=== PATIENT | male | born 1995 | race Caucasian/White ===

== ENCOUNTER 2016-05-18 06:55 | Emergency (ER) | payer SELFPAY ==
[~2016-05-18] VITALS: Ht 195.6 cm; Wt 135.0 kg
[~2016-05-18 06:55] MED LIST: NAPROSYN500 MG PO; NO HOME MEDS; PERCOCET 5/325M1 TAB OR; SULFACET SOD10 % OU; ULTRAM50 M1 PO
[2016-05-18 07:50] LABS: INFLUENZA A NONE DETECTED (NONE DETECT); INFLUENZA B NONE DETECTED (NONE DETECT)
[2016-05-18] MEDS ORDERED: MOTRIN800 MG PO (07:55)
[2016-05-18 07:58] VITALS: BP 140/81
== END 2016-05-18 08:02 | disposition home or self-care (01) | DRG 552 ==
LOC: ED 06:55
PROVIDERS: Emergency Medicine
DX: M53.3 Sacrococcygeal disorders, not elsewhere classified (principal); B34.9 Viral infection, unspecified

== ENCOUNTER 2017-02-19 19:29 | Emergency (ER) | payer OTHER ==
[~2017-02-19] VITALS: Ht 195.6 cm; Wt 163.2 kg
[~2017-02-19 19:29] MED LIST changes: +MOTRIN800 MG PO
[2017-02-19 21:10] VITALS: BP 140/80
== END 2017-02-19 21:10 | disposition home or self-care (01) | DRG 605 ==
LOC: ED 19:29
PROC: 0HQ0XZZ Repair Scalp Skin, External Approach (ICD-10-PCS; principal; 2017-02-19)
DX: S01.01XA Laceration without foreign body of scalp, initial encounter (principal); W25.XXXA Contact with sharp glass, initial encounter; V49.49XA Driver injured in collision with other motor vehicles in traffic accident, initial encounter; Y92.413 State road as the place of occurrence of the external cause

== ENCOUNTER 2017-03-07 10:05 | Emergency (ER) | payer OTHER ==
[~2017-03-07] VITALS: Ht 195.6 cm; Wt 145.0 kg
[2017-03-07] MEDS ORDERED: NAPROSYN500 MG PO (10:34)
[2017-03-07 10:35] VITALS: BP 149/71
== END 2017-03-07 10:35 | disposition home or self-care (01) | DRG 605 ==
LOC: ED 10:05
DX: S90.112A Contusion of left great toe without damage to nail, initial encounter (principal); W22.8XXA Striking against or struck by other objects, initial encounter; Y93.89 Activity, other specified; Y92.009 Unspecified place in unspecified non-institutional (private) residence as the place of occurrence of the external cause

== ENCOUNTER 2020-06-15 19:05 | Emergency (ER) | payer BC ==
[2020-06-15 20:12] LABS: HEMATOCRIT 45.1 % (39.0-50.0); HEMOGLOBIN 14.5 g/dl (14.0-18.0); IMMATURE GRANULOCYTES 0.3 % (0.0-5.0); MEAN CORPUSCULAR HGB 29.4 pG CALC (26.0-32.0); MEAN CORPUSCULAR HGB CONC 32.2 g/dL CAL (32.0-36.0); NEUT# 8.09 thou/uL (1.82-7.42); RED BLOOD COUNT 4.93 mill/uL (4.70-6.10)
[2020-06-15 20:29] LABS: MEAN CELL VOLUME 91.5 fL CALC (80.0-100.0)
[2020-06-15 20:30] LABS: ALBUMIN 4.6 g/dL (3.2-5.0); ALKALINE PHOSPHATASE 56 u/l (38-126); ANION GAP 11 (6-22 (CALC)); BILIRUBIN, TOTAL 0.8 mg/dL (0.0-1.4); BUN 10 mg/dL (9-20); BUN/CREATININE RATIO 9 (12-20 (CALC)); CARBON DIOXIDE 30 mmol/l (22-30); CHLORIDE 101 mmol/l (95-108); CREATININE 1.1 mg/dL (0.7-1.3); GFR > 60 ML/MIN (>=60 (CALC)); GFR FOR AFR.AMER. > 60 ML/MIN (>=60 (CALC)); POTASSIUM 4.4 mmol/l (3.5-5.1); SGOT/AST 27 u/l (17-59); SODIUM 138 mmol/l (137-146); TOTAL PROTEIN 7.6 g/dL (6.3-8.2)
[2020-06-15] MEDS ORDERED: KEFLEX500 MG PO (20:45)
[2020-06-15] MEDS ORDERED: CLARITIN10 M2 PO (20:45)
[2020-06-15 21:23] VITALS: BP 155/66
== END 2020-06-15 21:35 | disposition home or self-care (01) | DRG 153 ==
LOC: ED 19:05
PROVIDERS: Emergency Medicine
DX: J06.9 Acute upper respiratory infection, unspecified (principal); Z20.822 Contact with and (suspected) exposure to COVID-19

== ENCOUNTER 2020-09-15 15:11 | Emergency (ER) | payer SELFPAY ==
[~2020-09-15 15:11] MED LIST changes: +CLARITIN10 M2 PO; +KEFLEX500 MG PO
[2020-09-15 16:35] VITALS: BP 146/86
== END 2020-09-15 16:45 | disposition home or self-care (01) | DRG 951 ==
LOC: ED 15:11
DX: Z20.822 Contact with and (suspected) exposure to COVID-19 (principal); F17.200 Nicotine dependence, unspecified, uncomplicated

== ENCOUNTER 2020-11-06 12:45 | Emergency (ER) | payer SELFPAY ==
[~2020-11-06] VITALS: Ht 195.6 cm; Wt 154.5 kg
[2020-11-06 14:32] VITALS: BP 114/55
== END 2020-11-06 14:33 | disposition home or self-care (01) | DRG 153 ==
LOC: ED 12:45
DX: J06.9 Acute upper respiratory infection, unspecified (principal); F17.220 Nicotine dependence, chewing tobacco, uncomplicated; Z20.822 Contact with and (suspected) exposure to COVID-19

== ENCOUNTER 2021-03-06 10:40 | Emergency (ER) | payer SELFPAY ==
[~2021-03-06] VITALS: Ht 195.6 cm; Wt 130.0 kg
[2021-03-06 11:22] VITALS: BP 126/70
[2021-03-06] MEDS ORDERED: FLEXERIL5 M1 PO (13:03)
[2021-03-06] MEDS ORDERED: TORADOL PO (13:03)
== END 2021-03-06 13:33 | disposition home or self-care (01) | DRG 179 ==
LOC: ED 10:40
DX: U07.1 COVID-19 (principal); F17.200 Nicotine dependence, unspecified, uncomplicated

== ENCOUNTER 2021-03-27 23:31 | Emergency (ER) | payer MEDICAID ==
[~2021-03-27] VITALS: Ht 195.6 cm; Wt 150.0 kg
[~2021-03-27 23:31] MED LIST changes: +FLEXERIL5 M1 PO; +TORADOL PO
[2021-03-27 23:52] LABS: HEMATOCRIT 48.7 % (39.0-50.0); HEMOGLOBIN 15.8 g/dl (14.0-18.0); MEAN CELL VOLUME 91.7 fL CALC (80.0-100.0); MEAN CORPUSCULAR HGB 29.8 pG CALC (26.0-32.0); MEAN CORPUSCULAR HGB CONC 32.4 g/dL CAL (32.0-36.0); NEUT# 3.37 thou/uL (1.82-7.42); RED BLOOD COUNT 5.31 mill/uL (4.70-6.10); RED CELL DISTRI WIDTH 13.3 % (11.5-15.5)
[2021-03-28 00:15] LABS: ALBUMIN 4.1 g/dL (3.2-5.0); ALKALINE PHOSPHATASE 59 u/l (38-126); BUN 9 mg/dL (9-20); BUN/CREATININE RATIO 8 (12-20 (CALC)); CHLORIDE 107 mmol/l (95-108); CREATININE 1.1 mg/dL (0.7-1.3); GFR > 60 ML/MIN (>=60 (CALC)); GFR FOR AFR.AMER. > 60 ML/MIN (>=60 (CALC)); SGOT/AST 27 u/l (17-59); SODIUM 141 mmol/l (137-146); TOTAL PROTEIN 7.2 g/dL (6.3-8.2)
[2021-03-28 00:17] LABS: ANION GAP 17 (6-22 (CALC)); BILIRUBIN, TOTAL 0.3 mg/dL (0.0-1.4); CARBON DIOXIDE 21 mmol/l (22-30)
[2021-03-28] MEDS ORDERED: LOMOTIL2.5 MG PO (01:54)
[2021-03-28 02:20] VITALS: BP 145/79
== END 2021-03-28 02:24 | disposition home or self-care (01) ==
LOC: ED 23:31
PROVIDERS: Family Medicine
DX: A08.4 Viral intestinal infection, unspecified (principal); F17.200 Nicotine dependence, unspecified, uncomplicated; Z86.16 Personal history of COVID-19

== ENCOUNTER 2023-02-27 16:20 | Emergency (ER) | payer BC ==
[~2023-02-27] VITALS: Ht 195.6 cm; Wt 163.2 kg
[2023-02-27] VITALS (7 sets, daily range): BP systolic 142–168; BP diastolic 85–120
[~2023-02-27 16:20] MED LIST changes: +LOMOTIL2.5 MG PO
[2023-02-27] MEDS ORDERED: TAM75CAP PO (18:49)
[2023-02-27] MEDS ORDERED: AMOX/K CLAV875 M1 PO (18:49)
== END 2023-02-27 19:06 | disposition home or self-care (01) | DRG 153 ==
LOC: ED 16:20
DX: J02.0 Streptococcal pharyngitis (principal); J11.1 Influenza due to unidentified influenza virus with other respiratory manifestations; Z20.822 Contact with and (suspected) exposure to COVID-19